=== PATIENT | female | born 1985 | race Native Hawaiian/Other Pacific Islander ===

== ENCOUNTER 2018-02-06 08:22 | Outpatient (CLI) | payer OTHER ==
[2018-02-06 08:53] LABS: PLATELET COUNT 201 K/uL (152-353)
[2018-02-06 09:39] LABS: POTASSIUM 4.3 mmol/L (3.6-5.2)
== END 2018-02-06 23:38 | disposition home or self-care (01) ==
LOC: MRI 08:22
PROVIDERS: Nurse Practitioner Family
DX: M54.6 Pain in thoracic spine (principal); M62.3 Immobility syndrome (paraplegic); M62.838 Other muscle spasm; M54.5 Low back pain; G95.89 Other specified diseases of spinal cord; Z79.899 Other long term (current) drug therapy
CPT/HCPCS: 80053; 84443; 85027; A9576